=== PATIENT | female | born 1965 | race Caucasian/White ===

== ENCOUNTER → 2025-04-13 | Outpatient (CLI) | payer OTHER | END | disposition home or self-care (01) | LOC: RAD 14:55 | PROVIDERS: ATTEND Internal Medicine | DX: I34.0 Nonrheumatic mitral (valve) insufficiency (principal); I51.7 Cardiomegaly; R07.89 Other chest pain | CPT/HCPCS: 93306 ==

== ENCOUNTER → 2025-06-20 | Outpatient (CLI) | payer OTHER | END | disposition home or self-care (01) | LOC: RAD 11:26 | PROVIDERS: ATTEND Nurse Practitioner | DX: S99.921A Unspecified injury of right foot, initial encounter (principal); M19.071 Primary osteoarthritis, right ankle and foot; M77.51 Other enthesopathy of right foot and ankle; R60.0 Localized edema; X58.XXXA Exposure to other specified factors, initial encounter; Y93.89 Activity, other specified; Y92.89 Other specified places as the place of occurrence of the external cause; Y99.8 Other external cause status | CPT/HCPCS: 73630-RT ==

== ENCOUNTER → 2025-09-22 | Day surgery (SDC) | payer OTHER ==
[2025-09-18 10:01] VITALS: BP 121/69; PULSE 52; RESP 18; TEMP 96.7; O2SAT 97
[2025-09-18] MEDS: MOVIPREP POWDER PACKET PO STA (10:43)
[2025-09-18 10:55] LABS: BASOPHIL # 0.0 10^3/uL (0.0-0.1); BASOPHIL % 0.3 % (0.1-1.2); EOSINOPHIL # 0.1 10^3/uL (0.0-0.2); EOSINOPHIL % 2.2 % (0.0-5.0); HEMATOCRIT(ML) 43.0 % (36.0-46.0); IG % 0.00 % (0.00-0.50); LYMPHOCYTES # 2.71 10^3/uL1 (1.0-4.8); LYMPHOCYTES % 46.6 % (24.0-44.0); MEAN CORP HGB 28.1 pg (26-34); MEAN CORP HGB CONCENTRATION 30.9 g/dL (33-36.5); MEAN CORP VOLUME 90.7 fL (78-100); MONOCYTES # 0.5 10^3/uL (0.3-0.8); MONOCYTES % 8.4 % (5.0-12.0); NEUTROPHIL # 2.5 10^3/uL (1.8-7.7); NEUTROPHILS % 42.5 % (41.0-85.0); RED BLOOD CELL 4.74 10^6/uL (4.00-5.20); RED CELL DISTRIBUTION WIDTH 13.8 % (11.5-14.5); WHITE BLOOD CELL 5.8 10^3/uL (4.5-11.0)
[2025-09-18 11:05] LABS: ALANINE AMINOTRANSFERASE(ML) 26.0 U/L (12-78); ALBUMIN(ML) 3.7 g/dL (3.4-5.0); CREATININE SERUM 0.7 mg/dL (0.59-1.40); EST GFR, NON-AA 85.4 (>/=60)
[~2025-09-22] VITALS: Ht 160 cm; Wt 112.7 kg
[~2025-09-22] MED LIST: AMLO-170 PO; ATEN-94 PO; DIPRIVAN IV ONE; GLYCOPYRROLATE ONE; LOSA1TAB22 PO; METH-621 PO; ROSU40TA PO; VERSED ONE; WATER ONE; XYLOCAINE 2% 5ML VIAL ONE
[2025-09-22 08:16] VITALS: BP 117/66; PULSE 50; RESP 18; TEMP 96.6; O2SAT 100
[2025-09-22] MEDS: NS 1000ML 1,000 ML IV ONE (08:28)
[2025-09-22 10:36] VITALS: TEMP 97.6
[2025-09-22 11:07] VITALS: BP 114/83; PULSE 67; RESP 18; TEMP 97.8; O2SAT 98
[2025-09-22 11:25] VITALS: BP 110/80; PULSE 73; RESP 18; O2SAT 96
[2025-09-22 11:40] VITALS: BP 97/60; PULSE 66; RESP 18; TEMP 98; O2SAT 96
== END | disposition home or self-care (01) ==
LOC: SDC 08:10
PROVIDERS: ATTEND Surgery
DX: Z12.11 Encounter for screening for malignant neoplasm of colon (principal); K62.1 Rectal polyp; I10 Essential (primary) hypertension; E07.9 Disorder of thyroid, unspecified
CPT/HCPCS: 80053; 85025; 36415; 45380; J3490; A4217; J2704; J2003; J2250

== ENCOUNTER → 2025-10-03 | Outpatient (CLI) | payer OTHER ==
[~2025-10-03] MED LIST changes: -DIPRIVAN IV ONE; -GLYCOPYRROLATE ONE; -VERSED ONE; -WATER ONE; -XYLOCAINE 2% 5ML VIAL ONE
== END | disposition home or self-care (01) ==
LOC: RAD 14:32
PROVIDERS: ATTEND Surgery
DX: E04.1 Nontoxic single thyroid nodule (principal); E07.9 Disorder of thyroid, unspecified
CPT/HCPCS: 76536